=== PATIENT | male | born 1950 | race Caucasian/White ===

== ENCOUNTER 2016-12-12 11:39 | Emergency (ER) | payer BC ==
[2016-12-12] MEDS ORDERED: Tetan/Diph/Pertus SYR(Tdap)* 0.5 ML SYR(BOOSTRIX) use SYR IM ONE (12:55)
[2016-12-12 12:57] VITALS: BP 139/86
--- NOTE | 2016-12-12 13:00 | UC ---
Laceration HPI - HPI Summary HPI Summary: patient cut hand on a metal object white changing the oil in the car. happened about 2 hours ago. 2.5 cm laceration between the 3rd and 4th knuckle on the left hand - History Of Current Complaint Stated Complaint: LEFT HAND LACERATION Time Seen by Provider: 12/12/16 12:51 Hx Obtained From: Patient Laceration Location: Hand Mechanism Of Injury: Sharp Trauma Onset/Duration: Sudden Onset, Lasting Hours Severity: Mild Aggravating Factors: Nothing Hands: 1 - simple laceration - Allergies/Home Medications Allergies/Adverse Reactions: Allergies Allergy/AdvReac Type Severity Reaction Status Date / Time No Known Allergies Allergy Verified 12/12/16 12:57 PMH/Surg Hx/FS Hx/Imm Hx Previously Healthy: Yes Cardiovascular History Of: Reports: Hypertension - Surgical History Surgical History: None - Family History Known Family History: Positive: None Negative: Cardiac Disease, Hypertension - Social History Alcohol Use: Occasionally Substance Use Type: None Smoking Status (MU): Never Smoked Tobacco Review of Systems Constitutional: Negative Skin: Other - laceration Eyes: Negative ENT: Negative Respiratory: Negative Cardiovascular: Negative Gastrointestinal: Negative Genitourinary: Negative Motor: Negative Neurovascular: Negative Musculoskeletal: Negative Neurological: Negative Psychological: Negative All Other Systems Reviewed And Are Negative: Yes Physical Exam Triage Information Reviewed: Yes Appearance: Well-Appearing, Well-Nourished, Pain Distress Vital Signs Reviewed: Yes Eye Exam: Normal ENT Exam: Normal ENT: Positive: Hearing grossly normal, Pharynx normal, TMs normal Dental Exam: Normal Neck exam: Normal Neck: Positive: Supple, Nontender, No Lymphadenopathy Respiratory Exam: Normal Respiratory: Positive: Chest non-tender, Lungs clear, Normal breath sounds Cardiovascular Exam: Normal Cardiovascular: Positive: RRR, No Murmur, Pulses Normal Abdominal Exam: Normal Abdomen Description: Positive: Nontender, No Organomegaly, Soft Bowel Sounds: Positive: Present Musculoskeletal Exam: Normal Musculoskeletal: Positive: Other: - hand movment is intact, Neurological Exam: Normal Neurological: Positive: Alert, Muscle Tone Normal Psychological Exam: Normal Skin: Positive: Other - 2.5 cm laceration on left hand, edges approximate well, bleeding well controlled, Laceration Repair - Laceration Repair 1 Description: Linear : No Repair Necessary Laceration Size After Repair: Length (cm) - 2.5 cm Modified For Repair: No Type Injection: Local Anesthesia Used: 1.0% Lido Cleansing Completed Via Routine Prep: Yes Irrigation With Pressure Irrigation Device: Yes Closure Material: Sutures - 4 Closure Method: Single Layer Suture Of: Skin Laceration Course/Dx - Course/Dx Course Of Treatment: hx obtained, exam performed, meds reviewed, tetanus given, lac repaired, dressing applied. educated on care - Differential Dx - Laceration/Wound Differental Diagnoses: Cellulitis, Joint Infection, Laceration, Puncture Wound, Tendon Laceration Provider Diagnoses: laceration simple 2.5 cm in left hand. tetanus vacination Discharge - Discharge Plan Condition: Stable Disposition: HOME Patient Education Materials: Laceration (ED) Additional Instructions: Keep area clean and dry, keep the splint on for the next 48 hours. stitches will be ready to come out in 7-10 days, Take the keflex for infection prevention. You received a tetanus booster today.
[2016-12-12] MEDS ORDERED: Lidocaine 1%* 5 ML VIAL ONE (13:10)
== END 2016-12-12 14:08 | disposition home or self-care (01) ==
LOC: UCCORT 11:39
DX: S61.412A Laceration without foreign body of left hand, initial encounter (principal); W45.8XXA Other foreign body or object entering through skin, initial encounter; Y93.89 Activity, other specified; Y92.9 Unspecified place or not applicable; Z23 Encounter for immunization; I10 Essential (primary) hypertension
CPT/HCPCS: 90471; 90715; 99212; G0463

== ENCOUNTER 2018-02-27 10:00 | Emergency (ER) | payer MEDICARE, BC ==
[2018-02-27 11:39] VITALS: BP 119/74
--- NOTE | 2018-02-27 11:54 | UC ---
Ear Complaint HPI - HPI Summary HPI Summary: He denies pain but feels like there is wax in the right ear. he gets some vertigo at times. He denies cardiac symptoms like palpitations or chest pain. He gets his ears flushed regularly every 6mo. - History of Current Complaint Chief Complaint: UCEar Stated Complaint: RT EAR PLUGGED Time Seen by Provider: 02/27/18 11:32 Hx Obtained From: Patient Onset/Duration: Gradual Onset, Lasting Days Severity Initially: Mild Severity Currently: Mild Pain Intensity: 0 Aggravating Factors: Nothing Alleviating Factors: Nothing Associated Signs/Symptoms: Positive: Foreign Body Sensation. Negative: Discharge, Hearing Loss, Trauma to Ear, Swelling @, URI Symptoms - Allergies/Home Medications Allergies/Adverse Reactions: Allergies Allergy/AdvReac Type Severity Reaction Status Date / Time No Known Allergies Allergy Verified 02/27/18 11:35 Home Medications: Home Medications Chlorthalidone TAB* [Hygroton TAB*] 25 mg PO DAILY 02/27/18 [History Confirmed 02/27/18] Ezetimibe TAB* [Zetia TAB*] 10 mg PO DAILY 02/27/18 [History Confirmed 02/27/18] PMH/Surg Hx/FS Hx/Imm Hx Previously Healthy: No - cerumen impaction. - Surgical History Surgical History: Yes Surgery Procedure, Year, and Place: HERNIA. CHOLECYSTECTOMY - Family History Known Family History: Positive: None Negative: Cardiac Disease, Hypertension - Social History Alcohol Use: Occasionally Substance Use Type: None Smoking Status (MU): Never Smoked Tobacco - Immunization History Most Recent Tetanus Shot: unkown Review of Systems ENT: Other - ear fullness. All Other Systems Reviewed And Are Negative: Yes Physical Exam Triage Information Reviewed: Yes Appearance: Well-Appearing, No Pain Distress Vital Signs: Initial Vital Signs Temp 98.1 F 02/27/18 11:33 Pulse 51 02/27/18 11:33 Resp 14 02/27/18 11:33 BP 119/74 02/27/18 11:33 Pulse Ox 99 02/27/18 11:33 Vital Signs Reviewed: Yes Eyes: Positive: Conjunctiva Clear ENT: Positive: Normal ENT inspection, TMs normal, Other - right moderate amount of cerumen. No pain or swelling. Neck: Positive: Supple, Nontender, No Lymphadenopathy. Negative: Nuchal Rigidity Respiratory: Positive: Lungs clear, Normal breath sounds, No respiratory distress, No accessory muscle use. Negative: Respiratory distress, Decreased breath sounds, Accessory muscle use, Crackles, Rhonchi, Stridor, Wheezing Cardiovascular: Positive: No Murmur, Pulses Normal. Negative: Tachycardia Abdomen Description: Positive: No Organomegaly, Soft. Negative: Distended, Guarding Musculoskeletal: Positive: Strength Intact, ROM Intact, No Edema Neurological: Positive: Alert, Muscle Tone Normal. Negative: Fatigued Psychological: Positive: Age Appropriate Behavior Skin: Negative: rashes Ear Complaint Course/Dx - Differential Dx/Diagnosis Provider Diagnoses: vertigo. right cerum impaction. Discharge - Sign-Out/Discharge Documenting (check all that apply): Discharge/Admit/Transfer - Discharge Plan Condition: Good Disposition: HOME Patient Education Materials: Cerumen Impaction (ED) Referrals: Chelsey Bentley MD [Primary Care Provider] - - Billing Disposition and Condition Condition: GOOD Disposition: Home
== END 2018-02-27 12:22 | disposition home or self-care (01) ==
LOC: UCCORT 10:00
DX: R42 Dizziness and giddiness (principal); H61.21 Impacted cerumen, right ear
CPT/HCPCS: 99212; G0463

== ENCOUNTER 2018-03-28 14:53 | Emergency (ER) | payer MEDICARE, BC ==
--- OUTSIDE RECORDS SUMMARY | 2018-03-28 15:56 | XMS REPORT ---
:1950 External Reference #:[id number] Author Organization [facility] 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 Chelsey Bentley MD Primary Care Physician Unavailable Payers Type Date Identification Numbers Payment Provider Subscriber Medicare Primary Effective: Policy Number: Medicare Servando Klein 2017 [id number] PayID: [id number] [address] [place] [address] Medigap Part B Effective: 2006 Policy Number: Excell[employer] Servando Klein [id number] Group Number: [id number] [address] [address] Group Name: [place] [address] PayID: [id number] Problems Date Description Provider Status Onset: 05/18/2015 Essential hypertension Nidhi Hurley PA-C Active Note: low-renin Onset: 05/18/2015 Rotator cuff syndrome Nidhi Hurley PA-C Active Onset: 05/18/2015 Primary erectile dysfunction Nidhi Hurley PA-C Active Onset: 05/18/2015 Benign prostatic hypertrophy Nidhi Hurley PA-C Active without outflow obstruction Note: Dr. Randhawa Onset: 05/18/2015 Degenerative joint disease Nidhi Hurley PA-C Active involving multiple joints Note: Warnowicz; left knee meniscectomy. Onset: 05/18/2015 Kidney stone Nidhi Hurley PA-C Active Onset: 05/18/2015 Chronic nonalcoholic liver disease RISHI Ding Active Note: transferrin saturation, ABC, antibodies anti-endomysial, anti-tTG, SPEP and ceruloplasmin WNL Onset: 05/18/2015 Gastroesophageal reflux disease Nidhi Hurley PA-C Active Note: upper endoscopy to D3 with random duodenal biopsies 2010 Onset: 05/18/2015 Hyperlipidemia Nidhi Hurley PA-C Active Note: December 2016 Chol 221 trig 198 HDL 51 LDL 130; Jun 2016 LDL 134 HDL 55 chol 222 The LDL goal is <130. Onset: 05/18/2015 Obesity Nidhi Hurley PA-C Active Onset: 05/18/2015 Adult health examination Nidhi Hurley PA-C Active Note: TS -. PPD 2012-. Onset: 07/23/2015 Diverticular disease of colon Christopher Paulino M.D. Active Note: colo to TI 2014 Onset: 10/11/2015 Benign essential hypertension [facility] Onset: 10/11/2015 Pure hypercholesterolemia MARLYN aCrlin Active Onset: 04/19/2017 Olecranon bursitis Jose Beach M.D. Active Onset: 07/02/2017 Impacted cerumen Swapnil Meyer M.D. Active Onset: 07/02/2017 Eustachian tube disorder Swapnil Meyer M.D. Active Family History Date Family Member(s) Problem(s) Comments Father Prostate Cancer Father Alzheimer's Disease Onset: (age 74 Years) Mother Colon Cancer Mother due to Cancer () Social History Type Date Description Comments Marital Status Lives With Spouse Occupation Retired Work Status Retired ETOH Use Currently consumes alcohol socially Smoking Patient denies history of smoking Daily Caffeine Consumes on average 2 cups of regular coffee per day Allergies, Adverse Reactions, Alerts Date Description Reaction Status Severity Comments 05/18/2015 Atorvastatin active Moderate 05/18/2015 Crestor Myalgias active Moderate 05/18/2015 Lovastatin Unknown active Moderate 03/13/2012 NKDA inactive Medications Medication Date Status Form Strength Qnty SIG Indications Ordering Provider Hydrocortisone 03/05/ Active Ointment 1% 28.35 apply to Chelsey 2017 0gm affected Mc, areas on MD chest three times a day Valacyclovir HCL 03/05/ Active Tablets 1gm 21tab 1 tab by Chelsey 2017 s mouth Mc, three times a day for 7 days Ezetimibe 07/09/ Active Tablets 10mg 90tab Take One Chelsey 2016 s Tablet By Johann Bentley MD Every Day Niacin Flush 03/30/ Active Capsules 500mg 360ca 4 by mouth Tavon Sanches 2015 ps every Sridhar DO night at bedtime Aspir-81 / Active Tablets DR 81mg 1 by mouth Unknown 0000 every day Vitamin D / Active Capsules 1,000Iu 1 tab by Unknown (Ergocalciferol) 0000 mouth daily Cialis / Active Tablets 20mg 15tab one 30 Mason 0000 s minutes Nj, prior to M.D. sexual activity Fish Oil / Active Capsules 500mg 1 by mouth Unknown 0000 every day Magnesium / Active Capsules 300mg 1 by mouth Unknown 0000 every day Osteo Bi-Flex / Active Tablets 250-200mg 2 by mouth Unknown Regular Strength 0000 every day Methyl B-12 / Active Lozenges 1000mcg 1PO qd Unknown 0000 Chlorthalidone / Active Tablets 25mg 1 daily Nadir, 0000 MD Leonides Meloxicam 04/19/ Hx Tablets 15mg 30tab 1 by mouth Jose 2016 - s every day Pompo, 03/05/ M.D. 2018 Amoxicillin/Clav 04/02/ Hx Tablets 875-125mg 20tab 1 by mouth L03.113 Mason ulanate 2016 twice a Nj, Potassium 06/12/ day x 10 M.D. 2017 days Probiotic 04/02/ Hx Capsules 90cap 1-2 L03.113 Mason Acidophilus 2016 - capsules Nj, 07/09/ by mouth M.D. 2017 daily x 10 days Niaspan 07/11/ Hx Tablets ER 1000mg 180ta 2 PO QHS Tavon Gaitan bs Sridhar DO Meloxicam 11/07/ Hx Tablets 15mg 30tab 1 by mouth Jose 2015 s every day Pompo, c food M.D. Omeprazole 11/07/ Hx Capsules 40mg 30cap 1 by mouth Jose 2015 - DR s every day Pompo, 01/03/ 30 min M.D. 2016 prior to breakfast Ibuprofen 10/11/ Hx Tablets 800mg 90tab 1 by mouth Jose 2015 - s three Pompo, 10/25/ times a M.D. 2015 day after meals as needed Isradipine 07/27/ Hx Capsules 5mg 180ca 1 by mouth I10 Christopher 2014 ps twice a Vat, day M.D. Rectiv 07/27/ Hx Ointment 0.4% 1unit 1 inch K60.2 Christopher 2014 s intra-anal Vatra, ly every M.D. 12 h Golytely 06/24/ Hx Solution 227.1gm 1unit drink 09/04 R19.5 Christopher 2015 - Rec s the jug Vatra, 07/27/ the day M.D. 2014 before (1 glass every 10 minutes), repeat and drink the other half the morning of the procedure Meloxicam 03/13/ Hx Tablets 15mg 30tab take 1 [place], 2011 s tablet po MD Gerry q day prn. Acetaminophen / Hx Tablets 500mg 2 by mouth Unknown 0000 every 4-6 hours as needed pain Vitamin C / Hx Tablets 100mg 1 po qd Unknown 0000 prn Osteo Advance / Hx Tablets 3 tabs po Unknown 0000 qd Gemfibrozil / Hx Tablets 600mg take one Unknown 0000 - tablet by mouth 2015 twice a day Isradipine / Hx Capsules 2.5mg 1 by mouth I10 Unknown 0000 - bid 2014 Base A / Hx Powder 3350 1 scoop @ Unknown Polyethylene 0000 bedtime Glycol 1450 prn, constipati on, hold for unformed bm. Lansoprazole / Hx Capsules 30mg 90cap [address] botello every day Antoni Paulino HTN Complex // Hx 3PO qd Unknown 0000 Prolessterol / Hx 2PO qd Unknown 0000 Betaine HCL / Hx Capsules 648mg 3PO qd Unknown 0000 - 2016 Niacin / Hx Tablets 500mg 1 by mouth Unknown 0000 - every day 2015 Medications Administered in Office Medication Date Status Form Strength Qnty SIG Indications Ordering Provider Depomedrol 80 Administered Injection Alma S. mg 016 MARLYN Gautam PPD Administered Injection Unknown 013 Immunizations CPT Code Status Date Vaccine Lot # [id number] Given 03/05/2018 Pneumovax Injection [id number] 43395 Given 09/05/2017 Pneumococcal Conjugate Vaccine 13 Valent For [id number] Intramuscular Use 11905 Given 07/09/2017 Influenza Virus Vacc[place] Iiv[place] [id number] Given 12/12/2016 Td Preservative Free For Use In Individuals 7 Yrs Or Older [id number] Given 07/06/2016 Influenza Virus Vaccine Split Virus Use For [id number] Individual 3Yr Older [id number] Given 06/14/2015 Influenza Vaccine (Fluzone) Age 3 And Older [id number] Given 05/27/2013 Tetnus Injection Vital Signs Date Vital Result Comment 03/05/2018 BP Systolic Sitting Right Arm 120 mmHg BP Diastolic Sitting Right Arm 79 mmHg Body Temperature 97.8 F Heart Rate 67 /min Respiratory Rate 16 /min Height 68 inches 5'8" Weight 182.00 lb BMI (Body Mass Index) 27.7 kg/m2 BSA (Body Surface Area) 1.96 m2 Huron body weight in kilograms 70 O2 % BldC Oximetry 98 % 09/05/2017 BP Systolic Sitting Left Arm 132 mmHg BP Diastolic Sitting Left Arm 78 mmHg Heart Rate 63 /min Respiratory Rate 16 /min Height 68 inches 5'8" Weight 207.00 lb BMI (Body Mass Index) 31.5 kg/m2 BSA (Body Surface Area) 2.07 m2 Huron body weight in kilograms 70 07/09/2017 BP Systolic 120 mmHg BP Diastolic 74 mmHg Heart Rate 79 /min Respiratory Rate 12 /min Height 68 inches 5'8" Weight 203.12 lb BMI (Body Mass Index) 30.9 kg/m2 BSA (Body Surface Area) 2.06 m2 Huron body weight in kilograms 70 O2 % BldC Oximetry 98 % 07/02/2017 BP Systolic 128 mmHg BP Diastolic 84 mmHg Heart Rate 68 /min Height 68 inches 5'8" Weight 193.00 lb BMI (Body Mass Index) 29.3 kg/m2 BSA (Body Surface Area) 2.01 m2 Huron body weight in kilograms 70 04/09/2017 BP Systolic 132 mmHg BP Diastolic 82 mmHg Height 68 inches 5'8" Weight 191.00 lb BMI (Body Mass Index) 29.0 kg/m2 BSA (Body Surface Area) 2.00 m2 [place] body weight in kilograms 70 04/02/2017 BP Systolic Sitting Right Arm 112 mmHg BP Diastolic Sitting Right Arm 62 mmHg Body Temperature 98.4 F Heart Rate 76 /min Height 68 inches 5'8" Weight 192.00 lb BMI (Body Mass Index) 29.2 kg/m2 BSA (Body Surface Area) 2.01 m2 Huron body weight in kilograms 70 O2 % BldC Oximetry 95 % 03/23/2017 BP Systolic 134 mmHg BP Diastolic 76 mmHg Body Temperature 99.0 F Heart Rate 80 /min Respiratory Rate 16 /min Height 68 inches 5'8" Weight 190.00 lb BMI (Body Mass Index) 28.9 kg/m2 BSA (Body Surface Area) 2.00 m2 Huron body weight in kilograms 70 O2 % BldC Oximetry 97 % 01/03/2017 BP Systolic 136 mmHg BP Diastolic 83 mmHg Heart Rate 65 /min Height 68 inches 5'8" Weight 197.00 lb BMI (Body Mass Index) 30.0 kg/m2 BSA (Body Surface Area) 2.03 m2 12/21/2016 BP Systolic 130 mmHg BP Diastolic 74 mmHg Heart Rate 65 /min Height 68 inches 5'8" Weight 197.00 lb BMI (Body Mass Index) 30.0 kg/m2 BSA (Body Surface Area) 2.03 m2 07/06/2016 BP Systolic 128 mmHg BP Diastolic 81 mmHg Heart Rate 65 /min Height 68 inches 5'8" Weight 189.00 lb BMI (Body Mass Index) 28.7 kg/m2 BSA (Body Surface Area) 2.00 m2 03/30/2016 BP Systolic 119 mmHg BP Diastolic 73 mmHg Heart Rate 58 /min Height 68 inches 5'8" Weight 198.00 lb BMI (Body Mass Index) 30.1 kg/m2 BSA (Body Surface Area) 2.04 m2 10/25/2015 BP Systolic 126 mmHg BP Diastolic 75 mmHg Heart Rate 74 /min Height 68 inches 5'8" Weight 204.00 lb BMI (Body Mass Index) 31.0 kg/m2 BSA (Body Surface Area) 2.06 m2 10/11/2015 BP Systolic 136 mmHg BP Diastolic 79 mmHg Heart Rate 63 /min Height 68 inches 5'8" Weight 205.50 lb BMI (Body Mass Index) 31.2 kg/m2 BSA (Body Surface Area) 2.07 m2 09/27/2015 BP Systolic Sitting Left Arm 146 mmHg BP Diastolic Sitting Left Arm 84 mmHg Heart Rate 68 /min Respiratory Rate 16 /min Height 68 inches 5'8" Weight 212.00 lb BMI (Body Mass Index) 32.2 kg/m2 BSA (Body Surface Area) 2.09 m2 07/27/2015 BP Systolic 149 mmHg BP Diastolic 80 mmHg Heart Rate 60 /min Height 68 inches 5'8" Weight 200.00 lb BMI (Body Mass Index) 30.4 kg/m2 BSA (Body Surface Area) 2.04 m2 06/24/2015 BP Systolic 140 mmHg BP Diastolic 82 mmHg Heart Rate 64 /min Respiratory Rate 16 /min Height 68 inches 5'8" Weight 200.00 lb BMI (Body Mass Index) 30.4 kg/m2 BSA (Body Surface Area) 2.04 m2 06/14/2015 BP Systolic Sitting Left Arm 118 mmHg BP Diastolic Sitting Left Arm 66 mmHg Heart Rate 68 /min Respiratory Rate 20 /min Height 68 inches 5'8" Weight 200.00 lb BMI (Body Mass Index) 30.4 kg/m2 BSA (Body Surface Area) 2.04 m2 05/18/2015 BP Systolic 126 mmHg BP Diastolic 90 mmHg Heart Rate 62 /min Height 67 inches 5'7" Weight 201.00 lb BMI (Body Mass Index) 31.5 kg/m2 BSA (Body Surface Area) 2.03 m2 03/13/2012 Height 67 inches 5'7" Weight 209.00 lb 09/12/2011 Height 67 inches 5'7" Weight 213.00 lb 01/11/2011 Height 67 inches 5'7" Weight 213.00 lb Results Test Date Test Result H/L Range Note LDL Cholesterol Profile 02/28/2018 Cholesterol 180 mg/dL <200 1, 2 Triglycerides 129 mg/dL <150 1, 3 HDL Cholesterol 58 mg/dL >40 1, 4 LDL-Cholesterol 96 mg/dL < 100 1, 5 Laboratory test finding 02/28/2018 Uric Acid 6.1 mg/dL 3.5-7.2 1 Laboratory test finding 02/28/2018 Uric Acid <pending> CBS W/Automated Diff 02/28/2018 White Blood Count 5.6 K/uL 3.4-10.5 1 Red Blood Count 4.64 M/uL 4.20-5.80 1 Hemoglobin 15.3 gm/dL 12.8-17.0 1 Hematocrit 42.5 % 38.0-48.0 1 Mean Cell Volume 91.6 fl 80.0-96.0 1 Mean Corpuscular HGB 33.0 pg 27.0-33.0 1 Mean Corpuscular HGB Conc 36.0 g/dL 31.7-36.0 1 Platelet Count 298 K/uL 155-360 1 Red Cell Distri Width SD 42.4 fl 36-51 1 Red Cell Distri Width %CV 13.1 % 11.6-15.8 1 Mean Platelet Volume 10.9 fL High 6.6-10.6 1 Neut% 54.2 % 33.0-73.0 1 Lymph % 28.3 % 20.0-42.0 1 Griggs % 11.9 % High 0.0-10.0 1 Eo% 4.5 % 0.0-6.6 1 Bas% 1.1 % 0.0-1.1 1 Neut# 3.04 K/uL 1.8-7.0 1 Lymph # 1.59 K/uL 1.0-4.0 1 Griggs # 0.67 K/uL 0.0-0.8 1 Eos # 0.25 K/uL 0.0-0.5 1 Baso # 0.06 K/uL 0.0-0.1 1 Comprehensive Metabolic Panel 02/28/2018 Glucose 98 mg/dL 74-106 1 BUN 10 mg/dL 7-18 1 Creatinine 1.0 mg/dL 0.6-1.3 1 Glom Filtration Rate, Estimate >60 mL/min >60 1 If >60 mL/min >60 1, 6 BUN/Creat 10.0 ratio 1 Sodium 139 mmol/L 136-145 1 Potassium 3.8 mmol/L 3.5-5.1 1 Chloride 100 mmol/L 98-107 1 Carbon Dioxide 28 mmol/L 21-32 1 Anion Gap 11 mEq/L 8-16 1 Calcium 9.3 mg/dL 8.5-10.1 1 Total Protein 7.3 g/dL 6.4-8.2 1 Albumin 4.2 g/dL 3.4-5.0 1 Globulin 3.1 g/dL 1.9-4.3 1 Alb/Glob 1.4 ratio 1 Bilirubin,Total 0.6 mg/dL 0.2-1.0 1 Sgot/Ast 29 U/L 15-37 1 SGPT/Alt 49 U/L 12-78 1 Alkaline Phosphatase 44 U/L Low 45-117 1 Laboratory test finding 02/28/2018 Vitamin B12 1138 pg/mL High 193-986 1 Basic Metabolic Panel 11/26/2017 Sodium 135 mmol/L 133-145 Potassium 3.8 mmol/L 3.5-5.0 Chloride 94 mmol/L Low 101-111 Co2 Carbon Dioxide 31 mmol/L 22-32 Anion Gap 10 mmol/L 2-11 Glucose 85 mg/dL 70-100 Blood Urea Nitrogen 14 mg/dL 6-24 Creatinine 0.99 mg/dL 0.67-1.17 BUN/Creatinine Ratio 14.1 8-20 Calcium 10.3 mg/dL 8.6-10.3 Egfr Non- 75.9 >60 Egfr 97.6 >60 7 Laboratory test finding 11/26/2017 Uric Acid 7.7 mg/dL High 4.4-7.6 Pthi 11/26/2017 Calcium (PTH Intact) 10.2 mg/dL 8.6-10.3 PTH Intact 2.1 pmol/L 1.3-9.3 Basic Metabolic Panel 10/18/2017 Sodium 139 mmol/L 133-145 Potassium 3.8 mmol/L 3.5-5.0 Chloride 101 mmol/L 101-111 Co2 Carbon Dioxide 27 mmol/L 22-32 Anion Gap 11 mmol/L 2-11 Glucose 93 mg/dL 70-100 Blood Urea Nitrogen 12 mg/dL 6-24 Creatinine 1.01 mg/dL 0.67-1.17 BUN/Creatinine Ratio 11.9 8-20 Calcium 10.2 mg/dL 8.6-10.3 Egfr Non- 74.1 >60 Egfr 95.3 >60 8 Laboratory test finding 10/18/2017 Uric Acid 8.8 mg/dL High 4.4-7.6 PSA Screening 1.400 ng/mL 0-4.0 9 Serum or plasma 10/17/2017 Serum or plasma 9.1 8.5-10.1 calcium measurement calcium measurement (mass/volume) (mass/volume) Serum or plasma 10/17/2017 Serum or plasma 56 >40 cholesterol in HDL cholesterol in HDL measurement (ma measurement (mass/volume) Serum or plasma 10/17/2017 Serum or plasma 99 < 100 cholesterol in LDL cholesterol in LDL measurement by measurement by calculation (mass/volume) Serum or plasma 10/17/2017 Serum or plasma 190 <200 cholesterol cholesterol measurement measurement (mass/volu (mass/volume) Serum or plasma 10/17/2017 Serum or plasma 1.0 0.6-1.3 creatinine creatinine measurement measurement (mass/volum (mass/volume) Serum or plasma 10/17/2017 Serum or plasma 0.1 0.0-0.2 direct bilirubin direct bilirubin measurement (mass measurement (mass/volume) Serum or plasma 10/17/2017 Serum or plasma 94 74-106 glucose measurement glucose measurement (mass/volume) (mass/volume) Serum or plasma 10/17/2017 Serum or plasma 0.4 0.0-0.9 indirect bilirubin indirect bilirubin measurement (ma measurement (mass/volume) Serum or plasma 10/17/2017 Serum or plasma 7.6 6.4-8.2 protein measurement protein measurement (mass/volume) (mass/volume) Serum or plasma total 10/17/2017 Serum or plasma 0.5 0.2-1.0 bilirubin measurement total bilirubin (mass/ measurement (mass/volume) Serum or plasma 10/17/2017 Serum or plasma 174 High <150 triglyceride triglyceride measurement (mass/vol measurement (mass/volume) Serum or plasma urea 10/17/2017 Serum or plasma urea 14 7-18 nitrogen measurement nitrogen measurement (mass/vo (mass/volume) Serum sodium 10/17/2017 Serum sodium 142 136-145 measurement measurement Laboratory test 10/17/2017 Vitamin D,25-Hydroxy 57.3 ng/mL 30.0-100.0 10 , 11 finding Liver Function Tests 10/17/2017 Total Protein 7.6 g/dL 6.4-8.2 Albumin 4.1 g/dL 3.4-5.0 Globulin 3.5 g/dL 1.9-4.3 Alb/Glob 1.2 ratio Bilirubin,Total 0.5 mg/dL 0.2-1.0 Bilirubin,Direct 0.1 mg/dL 0.0-0.2 Bilirubin,Indirect 0.4 mg/dL 0.0-0.9 Sgot/Ast 41 U/L High 15-37 SGPT/Alt 79 U/L High 12-78 Alkaline Phosphatase 45 U/L 45-117 Comprehensive Metabolic Panel 10/17/2017 Glucose 94 mg/dL 74-106 BUN 14 mg/dL 7-18 Creatinine 1.0 mg/dL 0.6-1.3 Glom Filtration Rate, Estimate >60 mL/min >60 If >60 mL/min >60 12 BUN/Creat 14.0 ratio Sodium 142 mmol/L 136-145 Potassium 3.9 mmol/L 3.5-5.1 Chloride 102 mmol/L 98-107 Carbon Dioxide 31 mmol/L 21-32 Anion Gap 9 mEq/L 8-16 Calcium 9.1 mg/dL 8.5-10.1 LDL Cholesterol Profile 10/17/2017 Cholesterol 190 mg/dL <200 13 Triglycerides 174 mg/dL High <150 14 HDL Cholesterol 56 mg/dL >40 15 LDL-Cholesterol 99 mg/dL < 100 16 Alt SerPl-cCnc 10/17/2017 Alt SerPl-cCnc 79 High 12-78 Albumin/Glob SerPl 10/17/2017 Albumin/Glob SerPl 1.2 Anion Gap SerPl-sCnc 10/17/2017 Anion Gap SerPl-sCnc 9 8-16 Serum or plasma 10/17/2017 Serum or plasma 41 High 15-37 aspartate aspartate aminotransferase aminotransferase measure measurement (enzymatic activity/volume) Serum or plasma 10/17/2017 Serum or plasma 45 45-117 alkaline phosphatase alkaline phosphatase measurement ( measurement (enzymatic activity/volume) Serum or plasma albumin 10/17/2017 Serum or plasma albumin 4.1 3.4-5.0 measurement measurement (mass/volume) (mass/volume) Serum or plasma 10/17/2017 Serum or plasma 57.3 30.0-100.0 25-hydroxyvitamin D 25-hydroxyvitamin D measurement (m measurement (mass/volume) BUN/Creat SerPl 10/17/2017 BUN/Creat SerPl 14.0 Chloride SerPl-sCnc 10/17/2017 Chloride SerPl-sCnc 102 98-107 Globulin Ser Calc-mCnc 10/17/2017 Globulin Ser Calc-mCnc 3.5 1.9-4.3 Potassium SerPl-sCnc 10/17/2017 Potassium SerPl-sCnc 3.9 3.5-5.1 Serum carbon dioxide 10/17/2017 Serum carbon dioxide 31 21-32 measurement measurement Comprehensive Metabolic 08/20/2017 Glucose 105 mg/dL 74-106 17 Panel BUN 16 mg/dL 7-18 17 Creatinine 1.1 mg/dL 0.6-1.3 17 Glom Filtration Rate, Estimate >60 mL/min >60 17 If >60 mL/min >60 17, 18 BUN/Creat 14.5 ratio 17 Sodium 141 mmol/L 136-145 17 Potassium 3.9 mmol/L 3.5-5.1 17 Chloride 104 mmol/L 98-107 17 Carbon Dioxide 31 mmol/L 21-32 17 Anion Gap 6 mEq/L Low 8-16 17 Calcium 9.3 mg/dL 8.5-10.1 17 Total Protein 7.0 g/dL 6.4-8.2 17 Albumin 3.8 g/dL 3.4-5.0 17 Globulin 3.2 g/dL 1.9-4.3 17 Alb/Glob 1.2 ratio 17 Bilirubin,Total 0.5 mg/dL 0.2-1.0 17 Sgot/Ast 41 U/L High 15-37 17 SGPT/Alt 89 U/L High 17 Alkaline Phosphatase 41 U/L Low 45-117 17 LDL Cholesterol Profile 08/20/2017 Cholesterol 191 mg/dL <200 17, 19 Triglycerides 209 mg/dL High <150 17, 20 HDL Cholesterol 54 mg/dL >40 17, 21 LDL-Cholesterol 95 mg/dL < 100 17, 22 Comprehensive Metabolic Panel 07/02/2017 Glucose 99 mg/dL 74-106 23 BUN 11 mg/dL 7-18 23 Creatinine 1.0 mg/dL 0.6-1.3 23 Glom Filtration Rate, Estimate >60 mL/min >60 23 If >60 mL/min >60 23, 24 BUN/Creat 11.0 ratio 23 Sodium 140 mmol/L 136-145 23 Potassium 4.2 mmol/L 3.5-5.1 23 Chloride 103 mmol/L 98-107 23 Carbon Dioxide 29 mmol/L 21-32 23 Anion Gap 8 mEq/L 8-16 23 Calcium 9.6 mg/dL 8.5-10.1 23 Total Protein 7.2 g/dL 6.4-8.2 23 Albumin 3.9 g/dL 3.4-5.0 23 Globulin 3.3 g/dL 1.9-4.3 23 Alb/Glob 1.2 ratio 23 Bilirubin,Total 0.4 mg/dL 0.2-1.0 23 Sgot/Ast 39 U/L High 15-37 23 SGPT/Alt 67 U/L 12-78 23 Alkaline Phosphatase 43 U/L Low 45-117 23 LDL Cholesterol Profile 07/02/2017 Cholesterol 242 mg/dL High <200 23, 25 Triglycerides 207 mg/dL High <150 23, 26 HDL Cholesterol 58 mg/dL >40 23, 27 LDL-Cholesterol 143 mg/dL < 100 23, 28 Laboratory test finding 07/02/2017 Magnesium 2.2 mg/dL 1.8-2.4 23 Anaerobic Culture W/ GR 04/09/2017 Gram Stain NO ORGANISMS SEE <SEE 29 , 30 Stain NOTE> Gram Stain NO WHITE BLOOD C <SEE NOTE> , 31 Anaerobic Culture NO ANAEROBES ISO <SEE NOTE> 29, 32 Fluid Culture W/ Gram 04/09/2017 Gram Stain NO ORGANISMS SEE <SEE NOTE> 29, 33 Stain Gram Stain NO WHITE BLOOD C <SEE NOTE> 29, 34 Fluid Culture NO GROWTH: FINAL <SEE NOTE> 29, 35 LDL Cholesterol Profile 12/21/2016 Cholesterol 221 mg/dL High <200 36, 37 Triglycerides 198 mg/dL High <150 36, 38 HDL Cholesterol 51 mg/dL >40 36, 39 LDL-Cholesterol 130 mg/dL < 100 36, 40 Comprehensive Metabolic Panel 12/21/2016 Glucose 104 mg/dL 74-106 36 BUN 9 mg/dL 7-18 36 Creatinine 1.1 mg/dL 0.6-1.3 36 Glom Filtration Rate, Estimate >60 mL/min >60 36 If >60 mL/min >60 36, 41 BUN/Creat 8.1 ratio 36 Sodium 142 mmol/L 136-145 36 Potassium 4.4 mmol/L 3.5-5.1 36 Chloride 104 mmol/L 98-107 36 Carbon Dioxide 30 mmol/L 21-32 36 Anion Gap 8 mEq/L 8-16 36 Calcium 9.4 mg/dL 8.5-10.1 36 Total Protein 7.5 g/dL 6.4-8.2 36 Albumin 4.3 g/dL 3.4-5.0 36 Globulin 3.2 g/dL 1.9-4.3 36 Alb/Glob 1.3 ratio 36 Bilirubin,Total 0.7 mg/dL 0.2-1.0 36 Sgot/Ast 35 U/L 15-37 36 SGPT/Alt 58 U/L 12-78 36 Alkaline Phosphatase 45 U/L 45-117 36 Laboratory test finding 06/29/2016 Magnesium 2.3 mg/dL 1.8-2.4 42 Comprehensive Metabolic Panel 06/29/2016 Glucose 95 mg/dL 74-106 42 BUN 14 mg/dL 7-18 42 Creatinine 1.0 mg/dL 0.6-1.3 42 Glom Filtration Rate, Estimate >60 mL/min >60 42 If >60 mL/min >60 42, 43 BUN/Creat 14.0 ratio 42 Sodium 139 mmol/L 136-145 42 Potassium 3.7 mmol/L 3.5-5.1 42 Chloride 101 mmol/L 98-107 42 Carbon Dioxide 31 mmol/L 21-32 42 Anion Gap 7 mEq/L Low 8-16 42 Calcium 9.6 mg/dL 8.5-10.1 42 Total Protein 7.4 g/dL 6.4-8.2 42 Albumin 4.1 g/dL 3.4-5.0 42 Globulin 3.3 g/dL 1.9-4.3 42 Alb/Glob 1.2 ratio 42 Bilirubin,Total 0.8 mg/dL 0.2-1.0 42 Sgot/Ast 39 U/L High 15-37 42 SGPT/Alt 65 U/L 12-78 42 Alkaline Phosphatase 51 U/L 45-117 42 LDL Cholesterol Profile 06/29/2016 Cholesterol 222 mg/dL High <200 42, 44 Triglycerides 166 mg/dL High <150 42, 45 HDL Cholesterol 55 mg/dL >40 42, 46 LDL-Cholesterol 134 mg/dL < 100 42, 47 Comprehensive Metabolic Panel 09/22/2015 Glucose 145 mg/dL High 74-106 BUN 12 mg/dL 7-18 Creatinine 1.1 mg/dL 0.6-1.3 Glom Filtration Rate, Estimate >60 mL/min >60 If >60 mL/min >60 48 BUN/Creat 10.9 ratio Sodium 139 mmol/L 136-145 Potassium 4.1 mmol/L 3.5-5.1 Chloride 105 mmol/L 98-107 Carbon Dioxide 27 mmol/L 21-32 Anion Gap 7 mEq/L Low 8-16 Calcium 9.0 mg/dL 8.5-10.1 Total Protein 7.7 g/dL 6.4-8.2 Albumin 4.1 g/dL 3.4-5.0 Globulin 3.6 g/dL 1.9-4.3 Alb/Glob 1.1 ratio Bilirubin,Total 0.6 mg/dL 0.2-1.0 Sgot/Ast 46 U/L High 15-37 SGPT/Alt 100 U/L High 12-78 Alkaline Phosphatase 52 U/L 45-117 Laboratory test finding 07/14/2015 Polyp Colon And/Or See Note 49 Rectum Comprehensive Metabolic Panel 07/13/2015 Glucose 90 mg/dL 74-106 BUN 13 mg/dL 7-18 Creatinine 1.1 mg/dL 0.6-1.3 Glom Filtration Rate, Estimate >60 mL/min >60 If >60 mL/min >60 50 BUN/Creat 11.8 ratio Sodium 138 mmol/L 136-145 Potassium 3.7 mmol/L 3.5-5.1 Chloride 104 mmol/L 98-107 Carbon Dioxide 26 mmol/L 21-32 Anion Gap 8 mEq/L 8-16 Calcium 9.5 mg/dL 8.5-10.1 Total Protein 7.8 g/dL 6.4-8.2 Albumin 4.3 g/dL 3.4-5.0 Globulin 3.5 g/dL 1.9-4.3 Alb/Glob 1.2 ratio Bilirubin,Total 0.4 mg/dL 0.2-1.0 Sgot/Ast 54 U/L High 15-37 SGPT/Alt 95 U/L High 12-78 Alkaline Phosphatase 45 U/L 45-117 Comprehensive Metabolic Panel 06/17/2015 Glucose 112 mg/dL High 74-106 BUN 15 mg/dL 7-18 Creatinine 1.1 mg/dL 0.6-1.3 Glom Filtration Rate, Estimate >60 mL/min >60 If >60 mL/min >60 51 BUN/Creat 13.6 ratio Sodium 140 mmol/L 136-145 Potassium 4.4 mmol/L 3.5-5.1 Chloride 107 mmol/L 98-107 Carbon Dioxide 29 mmol/L 21-32 Anion Gap 4 mEq/L Low 8-16 Calcium 9.5 mg/dL 8.5-10.1 Total Protein 7.7 g/dL 6.4-8.2 Albumin 4.1 g/dL 3.4-5.0 Globulin 3.6 g/dL 1.9-4.3 Alb/Glob 1.1 ratio Bilirubin,Total 0.4 mg/dL 0.2-1.0 Sgot/Ast 40 U/L High 15-37 SGPT/Alt 100 U/L High 12-78 Alkaline Phosphatase 57 U/L 45-117 CBC/Manual Differential 06/17/2015 White Blood Count 4.9 K/uL 3.4-10.5 Red Blood Count 4.66 M/uL 4.20-5.80 Hemoglobin 15.0 gm/dL 12.8-17.0 Hematocrit 43.0 % 38.0-48.0 Mean Cell Volume 92.3 fl 80.0-96.0 Mean Corpuscular HGB 32.2 pg 27.0-33.0 Mean Corpuscular HGB Conc 34.9 g/dL 31.7-36.0 Platelet Count 282 K/uL 150-400 Red Cell Distri Width %CV 12.6 % 11.6-15.8 Mean Platelet Volume 10.4 fL 6.6-10.6 Total Cells Counted 100 #CELLS Neutrophils% 56 % 33-73 Lymph% 30 % 17-56 Platelet Estimate NORMAL Band% 1 % 0-8 Monocyte% 9 % 0-10 Eosinophil% 3 % 0-5 Basophil% 1 % 0-2 RBC Morphology NORMAL Comprehensive Metabolic Panel 05/12/2015 Glucose 99 mg/dL 74-106 BUN 11 mg/dL 7-18 Creatinine 1.0 mg/dL 0.6-1.3 Glom Filtration Rate, Estimate >60 mL/min >60 If >60 mL/min >60 52 BUN/Creat 11.0 ratio Sodium 137 mmol/L 136-145 Potassium 4.6 mmol/L 3.5-5.1 Chloride 108 mmol/L High 98-107 Carbon Dioxide 23 mmol/L 21-32 Anion Gap 6 mEq/L Low 8-16 Calcium 9.6 mg/dL 8.5-10.1 Total Protein 8.1 g/dL 6.4-8.2 Albumin 4.2 g/dL 3.4-5.0 Globulin 3.9 g/dL 1.9-4.3 Alb/Glob 1.1 ratio Bilirubin,Total 0.6 mg/dL 0.2-1.0 Sgot/Ast 61 U/L High 15-37 SGPT/Alt 93 U/L High 12-78 Alkaline Phosphatase 51 U/L 45-117 LDL Cholesterol Profile 05/12/2015 Cholesterol 191 mg/dL < 200 53 Triglycerides 126 mg/dL < 150 54 HDL Cholesterol 43 mg/dL > 40 55 LDL-Cholesterol 123 mg/dL < 100 56 1 E78.5 I10 E79.0 2 Reference Guidelines*: Desirable: ........... < 200 mg/dL Borderline High: ..... 200-239 mg/dL High: ................ >=240 mg/dL * The National Cholesterol Education Program (NCEP) 3 Reference Guidelines*: Normal: ............. < 150 mg/dL Borderline High: .... 150-199 mg/dL High: ............... 200-499 mg/dL Very High: .......... > 500 mg/dL * Source: National Cholesterol Education Program (NCEP) 4 Reference Guidelines*: Low HDL: ..... < 40 mg/dL Normal: ..... 40-60 mg/dL Desirable: ... > 60 mg/dL *The National Cholesterol Education Program(NCEP) 5 Reference Guidelines*: Optimal:........... <100 mg/dL Near Optimal....... 100-129 mg/dL Borderline High.... 130-159 mg/dL High............... 160-189 mg/dL Very High.......... >=190 mg/dL * Source: National Cholesterol Education Program (NCEP) 6 Note: Persistent reduction for 3 months or more in an eGFR <60 mL/min/1.73 m2 defines CKD. Patients with eGFR values >/=60 mL/min/1.73 m2 may also have CKD if evidence of persistent proteinuria is present. The original MDRD equation for estimated GFR is not valid for patients less than 18 years of age. Additional information may be found at www.kdoqi.org. 7 Because ethnic data is not always readily available, this report includes an eGFR for both -Americans and non- Americans. The National Kidney Disease Education Program (NKDEP) does not endorse the use of the MDRD equation for patients that are not between the ages of 18 and 70, are , have extremes of body size, muscle mass, or nutritional status, or are non- or non-. According to the National Kidney Foundation, irrespective of diagnosis, the stage of the disease is based on the level of kidney function: Stage Description GFR(mL/min/1.73 m(2)) 1 Kidney damage with normal or decreased GFR 90 2 Kidney damage with mild decrease in GFR 60-89 3 Moderate decrease in GFR 30-59 4 Severe decrease in GFR 15-29 5 Kidney failure <15 (or dialysis) 8 Because ethnic data is not always readily available, this report includes an eGFR for both -Americans and non- Americans. The National Kidney Disease Education Program (NKDEP) does not endorse the use of the MDRD equation for patients that are not between the ages of 18 and 70, are , have extremes of body size, muscle mass, or nutritional status, or are non- or non-. According to the National Kidney Foundation, irrespective of diagnosis, the stage of the disease is based on the level of kidney function: Stage Description GFR(mL/min/1.73 m(2)) 1 Kidney damage with normal or decreased GFR 90 2 Kidney damage with mild decrease in GFR 60-89 3 Moderate decrease in GFR 30-59 4 Severe decrease in GFR 15-29 5 Kidney failure <15 (or dialysis) 9 Serum levels of PSA measured using the [employer] EMOS[employer] DXI Hybritech immunoassay should not be interpreted as absolute evidence of the presence or absence of disease. The PSA value should be used in conjunction with other pertinent clinical diagnostic procedures. The values obtained with different assay methods or kits cannot be used interchangeably. 10 R94.5 E78.5 E55.9 11 Vitamin D deficiency has been defined by the Holiday of Medicine and an Endocrine Society practice guideline as a level of serum 25-OH vitamin D less than 20 ng/mL (1,2). The Endocrine Society went on to further define vitamin D insufficiency as a level between 21 and 29 ng/mL (2). 1. IOM (Holiday of Medicine). 2010. Dietary reference intakes for calcium and D. [place]: The National Academies Press. 2. Dorothy MF, [place], Mega FARFAN, et al. Evaluation, treatment, and prevention of vitamin D deficiency: an Endocrine Society clinical practice guideline. JCEM. 2010; 96(7):1911-30. Performed at: RN - [facility] [address] [id number] Maintenance Engineer: Nadja Gleason MD, Phone: [phone] 12 Note: Persistent reduction for 3 months or more in an eGFR <60 mL/min/1.73 m2 defines CKD. Patients with eGFR values >/=60 mL/min/1.73 m2 may also have CKD if evidence of persistent proteinuria is present. The original MDRD equation for estimated GFR is not valid for patients less than 18 years of age. Additional information may be found at www.[email or web address]. 13 Reference Guidelines*: Desirable: ........... < 200 mg/dL Borderline High: ..... 200-239 mg/dL High: ................ >=240 mg/dL * The National Cholesterol Education Program (NCEP) 14 Reference Guidelines*: Normal: ............. < 150 mg/dL Borderline High: .... 150-199 mg/dL High: ............... 200-499 mg/dL Very High: .......... > 500 mg/dL * Source: National Cholesterol Education Program (NCEP) 15 Reference Guidelines*: Low HDL: ..... < 40 mg/dL Normal: ..... 40-60 mg/dL Desirable: ... > 60 mg/dL *The National Cholesterol Education Program(NCEP) 16 Reference Guidelines*: Optimal:........... <100 mg/dL Near Optimal....... 100-129 mg/dL Borderline High.... 130-159 mg/dL High............... 160-189 mg/dL Very High.......... >=190 mg/dL * Source: National Cholesterol Education Program (NCEP) 17 I10,E78.5 18 Note: Persistent reduction for 3 months or more in an eGFR <60 mL/min/1.73 m2 defines CKD. Patients with eGFR values >/=60 mL/min/1.73 m2 may also have CKD if evidence of persistent proteinuria is present. The original MDRD equation for estimated GFR is not valid for patients less than 18 years of age. Additional information may be found at www.[email or web address]. 19 Reference Guidelines*: Desirable: ........... < 200 mg/dL Borderline High: ..... 200-239 mg/dL High: ................ >=240 mg/dL * The National Cholesterol Education Program (NCEP) 20 Reference Guidelines*: Normal: ............. < 150 mg/dL Borderline High: .... 150-199 mg/dL High: ............... 200-499 mg/dL Very High: .......... > 500 mg/dL * Source: National Cholesterol Education Program (NCEP) 21 Reference Guidelines*: Low HDL: ..... < 40 mg/dL Normal: ..... 40-60 mg/dL Desirable: ... > 60 mg/dL *The National Cholesterol Education Program(NCEP) 22 Reference Guidelines*: Optimal:........... <100 mg/dL Near Optimal....... 100-129 mg/dL Borderline High.... 130-159 mg/dL High............... 160-189 mg/dL Very High.......... >=190 mg/dL * Source: National Cholesterol Education Program (NCEP) 23 E78.5 E83.42 24 Note: Persistent reduction for 3 months or more in an eGFR <60 mL/min/1.73 m2 defines CKD. Patients with eGFR values >/=60 mL/min/1.73 m2 may also have CKD if evidence of persistent proteinuria is present. The original MDRD equation for estimated GFR is not valid for patients less than 18 years of age. Additional information may be found at www.[email or web address]. 25 Reference Guidelines*: Desirable: ........... < 200 mg/dL Borderline High: ..... 200-239 mg/dL High: ................ >=240 mg/dL * The National Cholesterol Education Program (NCEP) 26 Reference Guidelines*: Normal: ............. < 150 mg/dL Borderline High: .... 150-199 mg/dL High: ............... 200-499 mg/dL Very High: .......... > 500 mg/dL * Source: National Cholesterol Education Program (NCEP) 27 Reference Guidelines*: Low HDL: ..... < 40 mg/dL Normal: ..... 40-60 mg/dL Desirable: ... > 60 mg/dL *The National Cholesterol Education Program(NCEP) 28 Reference Guidelines*: Optimal:........... <100 mg/dL Near Optimal....... 100-129 mg/dL Borderline High.... 130-159 mg/dL High............... 160-189 mg/dL Very High.......... >=190 mg/dL * Source: National Cholesterol Education Program (NCEP) 29 M70.21 30 NO ORGANISMS SEEN 31 NO WHITE BLOOD CELLS 32 NO ANAEROBES ISOLATED 33 NO ORGANISMS SEEN 34 NO WHITE BLOOD CELLS 35 NO GROWTH: FINAL REPORT 36 K76.9 37 Reference Guidelines*: Desirable: ........... < 200 mg/dL Borderline High: ..... 200-239 mg/dL High: ................ >=240 mg/dL * The National Cholesterol Education Program (NCEP) 38 Reference Guidelines*: Normal: ............. < 150 mg/dL Borderline High: .... 150-199 mg/dL High: ............... 200-499 mg/dL Very High: .......... > 500 mg/dL * Source: National Cholesterol Education Program (NCEP) 39 Reference Guidelines*: Low HDL: ..... < 40 mg/dL Normal: ..... 40-60 mg/dL Desirable: ... > 60 mg/dL *The National Cholesterol Education Program(NCEP) 40 Reference Guidelines*: Optimal:........... <100 mg/dL Near Optimal....... 100-129 mg/dL Borderline High.... 130-159 mg/dL High............... 160-189 mg/dL Very High.......... >=190 mg/dL * Source: National Cholesterol Education Program (NCEP) 41 Note: Persistent reduction for 3 months or more in an eGFR <60 mL/min/1.73 m2 defines CKD. Patients with eGFR values >/=60 mL/min/1.73 m2 may also have CKD if evidence of persistent proteinuria is present. The original MDRD equation for estimated GFR is not valid for patients less than 18 years of age. Additional information may be found at www.[email or web address]. 42 E78.5 43 Note: Persistent reduction for 3 months or more in an eGFR <60 mL/min/1.73 m2 defines CKD. Patients with eGFR values >/=60 mL/min/1.73 m2 may also have CKD if evidence of persistent proteinuria is present. The original MDRD equation for estimated GFR is not valid for patients less than 18 years of age. Additional information may be found at www.[email or web address]. 44 Reference Guidelines*: Desirable: ........... < 200 mg/dL Borderline High: ..... 200-239 mg/dL High: ................ >=240 mg/dL * The National Cholesterol Education Program (NCEP) 45 Reference Guidelines*: Normal: ............. < 150 mg/dL Borderline High: .... 150-199 mg/dL High: ............... 200-499 mg/dL Very High: .......... > 500 mg/dL * Source: National Cholesterol Education Program (NCEP) 46 Reference Guidelines*: Low HDL: ..... < 40 mg/dL Normal: ..... 40-60 mg/dL Desirable: ... > 60 mg/dL *The National Cholesterol Education Program(NCEP) 47 Reference Guidelines*: Optimal:........... <100 mg/dL Near Optimal....... 100-129 mg/dL Borderline High.... 130-159 mg/dL High............... 160-189 mg/dL Very High.......... >=190 mg/dL * Source: National Cholesterol Education Program (NCEP) 48 Note: Persistent reduction for 3 months or more in an eGFR <60 mL/min/1.73 m2 defines CKD. Patients with eGFR values >/=60 mL/min/1.73 m2 may also have CKD if evidence of persistent proteinuria is present. The original MDRD equation for estimated GFR is not valid for patients less than 18 years of age. Additional information may be found at www.[email or web address]. 49 OPERATION/PROCEDURE Colonoscopy DIAGNOSIS: PART 1: "COLON, TRANSVERSE, BIOPSY": - HYPERPLASTIC POLYP. PART 2: "COLON, SIGMOID, BIOPSY": - HYPERPLASTIC POLYP. PART 3: "COLON, SIGMOID, BIOPSY": - HYPERPLASTIC POLYP WITH LYMPHOID AGGREGATES. /niki 1039 GROSS Received in formalin in three properly labeled containers with the patient's name and accession number. Part 1; The specimen is designated "TRANSVERSE POLYP" and consists of several pieces of soft connor rubbery tissue in aggregate measuring 0.6 x 0.4 x 0.2 cm. The entire specimen is submitted in cassette one. Part 2; The specimen is designated "SIGMOID POLYP" and consists of a single piece of soft connor tissue measuring 0.2 x 0.2 x 0.2 cm. The entire specimen is submitted in cassette two. Part 3; The specimen is designated "SIGMOID POLYP" and consists of a single piece of connor brown tissue measuring 0.5 x 0.2 x 0.2 cm. The entire specimen is submitted in cassette three. /niki PRE OPERATIVE DIAGNOSIS Hematochezia REVIEW CODE CODE: I Signed Electronically signed RAYRAY PERKINS MD [id number] 50 Note: Persistent reduction for 3 months or more in an eGFR <60 mL/min/1.73 m2 defines CKD. Patients with eGFR values >/=60 mL/min/1.73 m2 may also have CKD if evidence of persistent proteinuria is present. The original MDRD equation for estimated GFR is not valid for patients less than 18 years of age. Additional information may be found at www.[email or web address]. 51 Note: Persistent reduction for 3 months or more in an eGFR <60 mL/min/1.73 m2 defines CKD. Patients with eGFR values >/=60 mL/min/1.73 m2 may also have CKD if evidence of persistent proteinuria is present. The original MDRD equation for estimated GFR is not valid for patients less than 18 years of age. Additional information may be found at www.[email or web address]. 52 Note: Persistent reduction for 3 months or more in an eGFR <60 mL/min/1.73 m2 defines CKD. Patients with eGFR values >/=60 mL/min/1.73 m2 may also have CKD if evidence of persistent proteinuria is present. The original MDRD equation for estimated GFR is not valid for patients less than 18 years of age. Additional information may be found at www.[email or web address]. 53 Reference Guidelines*: Desirable: ........... < 200 mg/dL Borderline High: ..... 200-239 mg/dL High: ................ >=240 mg/dL * The National Cholesterol Education Program (NCEP) 54 Reference Guidelines*: Normal: ............. < 150 mg/dL Borderline High: .... 150-199 mg/dL High: ............... 200-499 mg/dL Very High: .......... > 500 mg/dL * Source: National Cholesterol Education Program (NCEP) 55 Reference Guidelines*: Low HDL: ..... < 40 mg/dL Normal: ..... 40-60 mg/dL Desirable: ... > 60 mg/dL *The National Cholesterol Education Program(NCEP) 56 Reference Guidelines*: Optimal:........... <100 mg/dL Near Optimal....... 100-129 mg/dL Borderline High.... 130-159 mg/dL High............... 160-189 mg/dL Very High.......... >=190 mg/dL * Source: National Cholesterol Education Program (NCEP) Procedures Date CPT Code Description Status Comment 04/09/201793605 Aspiration/Injection joint Completed intermediate(wrist/ankle/elbow /olbursa 07/06/2016 56626 Remove Impact Cerumen Irrigati Completed 12/09/201524816 Asp./Injection major joint Completed 10/11/2015 44375 Radiology, Knee 3 Views Completed 10/11/2015 77036 Radiology, Knee 3 Views Completed 09/27/2015 02057 Remove Impacted Cerumen Completed 07/27/2015 49612 Remove Impacted Cerumen Completed 07/14/2015 68949 Colonoscopy With Polypectomy Completed 05/18/2015 45215 Remove Impacted Cerumen Completed 09/03/2014 Colonoscopy Completed 2024Document: 07/14/15 - Operative Report 06/11/2013 94566 Anesthesia, Upper Abdomen Completed Surgery Not Otherwise Spec 06/05/2013 64393 EKG Interpretation And Report Completed Only 01/11/201192114 Asp./Injection major joint Completed 07/03/2007 19555 Arthroscopy w/meniscectomy Completed including meniscal shaving 06/25/2007 92605 EKG-Tracing And Report Completed 04/27/1994 14348 Remove Impacted Cerumen Completed Encounters Type Date Location Provider CPT E/M Dx Office Visit 09/05/2017 11:40a [place] [address] E78.5 I10 R94.5 Z23 M70.21 Office Visit 08/09/2017 8:30a Orthopaedic Office Jose [place] M.D. 49136 M70.21 Office Visit 07/09/2017 1:20p [place] [address] Z23 I10 E78.5 E66.09 Z23 N20.0 Office Visit 07/02/2017 9:00a Primary Care Office Swapnil Meyer M.D. 89453 H61.21 H69.93 Office Visit 06/12/2017 10:00a Orthopaedic Office [place] M.D. 37727 M70.21 Office Visit 05/15/2017 9:15a Orthopaedic Office [place] M.D. 45350 M70.21 Office Visit 04/19/2017 8:45a Orthopaedic Office Jose Beach M.D. 32584 M70.21 Office Visit 04/09/2017 1:15p Orthopaedic Office [place] M.D. 61402 M70.21 Office Visit 04/02/2017 3:00p Primary Care Office Nidhi Hurley 81138 S40.811D PA-C V23.0xxD L03.113 I10 Office Visit 03/23/2017 1:20p [place] [address] S40.819A V29.00xA S37.039A Office Visit 01/03/2017 9:30a Primary Care Office Nidhi Hurley 07217 S61.412D PA-C K76.0 I10 E78.5 E83.42 Office Visit 12/21/2016 9:00a Primary Care Office Nidhi Hurley 44806 S61.412A PA-C I10 H61.23 K76.0 Z48.02 Office Visit 07/06/2016 9:30a Primary Care Office Nidhi Hurley PA-C 01917 I10 K57.30 K76.9 E78.5 M79.673 K60.1 Z23 H61.23 Office Visit 03/30/2016 2:00p Primary Care Office Nidhi Hurley PA-C 96062 I10 K57.30 K76.9 E78.5 M79.673 K60.1 Z23 Office Visit 01/07/2016 8:15a Orthopaedic Office Alma Gautam, 73695 M17.11 RPA M25.561 Office Visit 11/08/2015 8:15a Orthopaedic Office Alma Gautam, 91398 M25.561 [facility] M17.11 Office Visit 10/25/2015 9:30a HIMANSHU Hurley PA-C 99950 I10 K57.30 K76.9 E78.5 M79.673 Office Visit 10/11/2015 11:00a Orthopaedic Office Alma Gautam, 32026 M25.561 [facility] M17.11 Office Visit 09/27/2015 1:30p HIMANSHU Hurley PA-C 04233 I10 K57.30 K57.90 K60.2 K76.9 E78.5 H61.21 Office Visit 07/27/2015 1:30p HIMANSHU Paulino M.D. 24278 H61.20 I10 K76.9 E66.9 K57.30 K60.2 Office Visit 06/24/2015 1:00p HIMANSHU Hurley PA-C 12750 E78.5 I10 K76.0 R19.5 Office Visit 06/14/2015 11:30a HIMANSHU Hurley PA-C 16462 R19.5 Z23 K21.9 I10 Office Visit 05/18/2015 9:30a HIMANSHU Hurley PA-C 41519 I10 E78.5 M94.0 H61.23 K21.9 Office Visit 10/07/2008 1:45p HIMANSHU Paulino M.D. 53859 789.01 715.00 530.81 401.1 Office Visit 09/29/2008 1:45p HIMANSHU Paulino M.D. 27802 786.59 272.2 302.72 530.81 Office Visit 04/10/2008 2:30p HIMANSHU Paulino M.D. 01551 807.00 564.00 Office Visit 02/14/2008 2:30p HIMANSHU Paulino M.D. 46211 789.00 272.2 302.72 Office Visit 10/03/2007 9:30a [place] [address] 836.0 717.7 V67.09 Office Visit 06/21/2007 1:15p HIMANSHU Paulino M.D. 85192 719.46 272.2 Office Visit 06/03/2007 9:15a [place] [address] 836.0 Office Visit 04/30/2007 11:15a HIMANSHU Paulino M.D. 48985 719.46 Plan of Care Future Appointment(s):08/29/2018 8:15 am - [employer] at [facility] Care Fehqjm5009/05 3:40 pm - Chelsey Bentley MD at Primary Care Hesqxq6303/05/2018 - Chelsey Bentley MDI10 Essential (primary) hypertensionNew Labs:CBS W/Automated DiffComments:-Well controlled-Chlorthalidone dailyReferral:Dieter Barrios JR, M.D., Cardiovsclr UoobofyH63.5 Hyperlipidemia, unspecifiedNew Labs: Comprehensive Metabolic PanelLDL Cholesterol ProfileCBS W/Automated DiffComments :-Well controlled on Zetia, but increase in LFTs intially and now normalized - Niacin, Fish oil-Advised diet control, increase exercise and continue to lose weight-Trilgycerides also improved-Continue tomonitor every 6 monthsReferral: Dieter Barrios JR, M.D., Cardiovsclr EfzzwfnT51.511 Pain in right shoulderComments:-possibly bursitis, good ROM-Aleve PRN, Ice area-Referral to OrthoReferral:Pankaj Torrez MD, Sports Med/IduvdcxzfmtuqM61.551 Pain in right hipComments:-likely mild arthritis vs bursitis-Aleve PRN -Ice area- patient would like referral to OrthoReferral:Pankaj Torrez MD, Sports Med/ [id number] Encounter for immunizationComments:-pneumovax given -counseled on [id number] Rash and other nonspecific skin eruptionComments:possible shingles hydrocortisone three times a day as needed for itchingvalacyclovir 1gm 1 tab threetimes a day x 7 daysR07.89 Other chest painComments:-atypical chest pain-No pain with exertion intermittent-no pain today-occasional palpitations- EKG poor quality in office, cannot be read will send to Cardiology for EKGReferral:Dieter Barrios JR, M.D., Cardiovsclr DiseaseAllNew Medication: Hydrocortisone 1 %Valacyclovir HCL 1 gmFollow up:f/u in 6 months fasting blood work prior pls get last urology note
--- OUTSIDE RECORDS SUMMARY | 2018-03-28 15:57 | XMS REPORT ---
:1950 External Reference #:[id number] Author Organization [facility] 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 Chelsey Bentley MD Primary Care Physician Unavailable Payers Type Date Identification Numbers Payment Provider Subscriber Medicare Primary Effective: Policy Number: Medicare Servando Klein 2017 [id number] PayID: [id number] [address] [place] [address] Medigap Part B Effective: 2006 Policy Number: Excell[employer] Servando Klein [id number] Group Number: [id number] [address] [address] Group Name: [place] [address] PayID: [id number] Problems Date Description Provider Status Onset: 05/18/2015 [...] 10/11/2015 Benign essential hypertension [facility] Onset: 10/11/2015 Pure hypercholesterolemia MARLYN Carlin Active Onset: 04/19/2017 Olecranon bursitis Jose Beach [...] 03/13/ Hx Tablets 15mg 30tab take 1 [place], 2011 s tablet po MD Gerry q [...] CPT Code Status Date Vaccine Lot # [id number] Given 03/05/2018 Pneumovax Injection [id number] 70517 Given 09/05/2017 Pneumococcal Conjugate Vaccine 13 Valent For [id number] Intramuscular Use 43275 Given 07/09/2017 Influenza Virus Vaccine [place]riv[place] Iiv[place] [id number] Given 12/12/2016 Td Preservative Free For Use In Individuals 7 Yrs Or Older 48647 Given 07/06/2016 Influenza Virus Vaccine Split Virus Use For [id number] Individual 3Yr Older [id number] Given 06/14/2015 Influenza Vaccine (Fluzone) Age 3 And Older [id number] 88243 Given 05/27/2013 Tetnus Injection Vital Signs Date Vital Result Comment 03/05/2018 BP Systolic Sitting Right Arm 120 mmHg BP Diastolic Sitting Right Arm 79 mmHg Body Temperature 97.8 F Heart Rate 67 /min Respiratory Rate 16 /min Height 68 inches 5'8" Weight 182.00 lb BMI (Body Mass Index) 27.7 kg/m2 BSA (Body Surface Area) 1.96 m2 [place] body weight in kilograms 70 O2 % BldC Oximetry 98 % 09/05/2017 BP Systolic Sitting Left Arm 132 mmHg BP Diastolic Sitting Left Arm 78 mmHg Heart Rate 63 /min Respiratory Rate 16 /min Height 68 inches 5'8" Weight 207.00 lb BMI (Body Mass Index) 31.5 kg/m2 BSA (Body Surface Area) 2.07 m2 [place] body weight in kilograms 70 07/09/2017 BP Systolic 120 mmHg BP Diastolic 74 mmHg Heart Rate 79 /min Respiratory Rate 12 /min Height 68 inches 5'8" Weight 203.12 lb BMI (Body Mass Index) 30.9 kg/m2 BSA (Body Surface Area) 2.06 m2 [place] body weight in kilograms 70 O2 % BldC Oximetry 98 % 07/02/2017 BP Systolic 128 mmHg BP Diastolic 84 mmHg Heart Rate 68 /min Height 68 inches 5'8" Weight 193.00 lb BMI (Body Mass Index) 29.3 kg/m2 BSA (Body Surface Area) 2.01 m2 [place] body weight in kilograms 70 04/09/2017 BP Systolic 132 mmHg BP Diastolic 82 mmHg Height 68 inches 5'8" Weight 191.00 lb BMI (Body Mass Index) 29.0 kg/m2 BSA (Body Surface Area) 2.00 m2 [place] body weight in kilograms 70 04/02/2017 BP Systolic Sitting Right Arm 112 mmHg BP Diastolic Sitting Right Arm 62 mmHg Body Temperature 98.4 F Heart Rate 76 /min Height 68 inches 5'8" Weight 192.00 lb BMI (Body Mass Index) 29.2 kg/m2 BSA (Body Surface Area) 2.01 m2 [place] body weight in kilograms 70 O2 % BldC Oximetry 95 % 03/23/2017 BP Systolic 134 mmHg BP Diastolic 76 mmHg Body Temperature 99.0 F Heart Rate 80 /min Respiratory Rate 16 /min Height 68 inches 5'8" Weight 190.00 lb BMI (Body Mass Index) 28.9 kg/m2 BSA (Body Surface Area) 2.00 m2 [place] body weight in kilograms 70 O2 % [...] Test Date Test Result H/L Range Note Laboratory test finding 02/28/2018 Uric Acid <pending> [...] 1 Lymph % 28.3 % 20.0-42.0 1 Bond % 11.9 % High 0.0-10.0 1 Eo% 4.5 % 0.0-6.6 1 Bas% 1.1 % 0.0-1.1 1 Neut# 3.04 K/uL 1.8-7.0 1 Lymph # 1.59 K/uL 1.0-4.0 1 Bond # 0.67 K/uL 0.0-0.8 1 Eos # 0.25 K/uL 0.0-0.5 1 Baso # 0.06 K/uL 0.0-0.1 1 Laboratory test finding 02/28/2018 Vitamin B12 1138 pg/mL High 193-986 1 Comprehensive Metabolic Panel 02/28/2018 Glucose 98 mg/dL 74-106 1 BUN 10 mg/dL 7-18 1 Creatinine 1.0 mg/dL 0.6-1.3 1 Glom Filtration Rate, Estimate >60 mL/min >60 1 If >60 mL/min >60 1, 2 BUN/Creat 10.0 ratio 1 Sodium 139 mmol/L [...] Low 45-117 1 Laboratory test finding 02/28/2018 Uric Acid 6.1 mg/dL 3.5-7.2 1 LDL Cholesterol Profile 02/28/2018 Cholesterol 180 mg/dL <200 1, 3 Triglycerides 129 mg/dL <150 1, 4 HDL Cholesterol 58 mg/dL >40 1, 5 LDL-Cholesterol 96 mg/dL < 100 1, 6 Basic Metabolic Panel 11/26/2017 Sodium 135 mmol/L [...] mg/dL 8.6-10.3 PTH Intact 2.1 pmol/L 1.3-9.3 Laboratory test finding 10/18/2017 Uric Acid 8.8 mg/dL High 4.4-7.6 PSA Screening 1.400 ng/mL 0-4.0 8 Basic Metabolic Panel 10/18/2017 Sodium 139 mmol/L 133-145 Potassium 3.8 mmol/L 3.5-5.0 Chloride 101 mmol/L 101-111 Co2 Carbon Dioxide 27 mmol/L 22-32 Anion Gap 11 mmol/L 2-11 Glucose 93 mg/dL 70-100 Blood Urea Nitrogen 12 mg/dL 6-24 Creatinine 1.01 mg/dL 0.67-1.17 BUN/Creatinine Ratio 11.9 8-20 Calcium 10.2 mg/dL 8.6-10.3 Egfr Non- 74.1 >60 Egfr 95.3 >60 9 Serum or plasma 10/17/2017 Serum or plasma 45 45-117 alkaline phosphatase alkaline phosphatase measurement ( measurement (enzymatic activity/volume) Serum or plasma 10/17/2017 [...] or plasma 190 <200 cholesterol cholesterol measurement (mass/volu measurement (mass/volume) Serum or plasma 10/17/2017 Serum or plasma 1.0 0.6-1.3 creatinine measurement creatinine (mass/volum measurement (mass/volume) Serum or plasma direct 10/17/2017 Serum or plasma 0.1 0.0-0.2 bilirubin measurement direct bilirubin (mass measurement (mass/volume) Serum or plasma 10/17/2017 Serum or plasma 94 74-106 glucose measurement glucose measurement (mass/volume) (mass/volume) Serum or plasma 10/17/2017 Serum or plasma 0.4 0.0-0.9 indirect bilirubin indirect bilirubin measurement (ma measurement (mass/volume) Serum or plasma 10/17/2017 Serum or plasma 7.6 6.4-8.2 protein measurement protein measurement (mass/volume) (mass/volume) Serum or plasma total 10/17/2017 Serum or plasma total 0.5 0.2-1.0 bilirubin measurement bilirubin measurement (mass/ (mass/volume) Serum or plasma 10/17/2017 Serum or plasma 174 High <150 triglyceride triglyceride measurement (mass/vol measurement (mass/volume) Serum or plasma urea 10/17/2017 Serum or plasma urea 14 7-18 nitrogen measurement nitrogen measurement (mass/vo (mass/volume) Serum sodium 10/17/2017 Serum sodium 142 136-145 measurement measurement Laboratory test 10/17/2017 Vitamin D,25-Hydroxy 57.3 30.0-100.0 10, 11 finding ng/mL Liver Function Tests 10/17/2017 Total Protein 7.6 [...] SerPl-sCnc 10/17/2017 Anion Gap SerPl-sCnc 9 8-16 BUN/Creat SerPl 10/17/2017 BUN/Creat SerPl 14.0 Chloride SerPl-sCnc 10/17/2017 Chloride SerPl-sCnc 102 98-107 Globulin Ser Calc-mCnc 10/17/2017 Globulin Ser 3.5 1.9-4.3 Calc-mCnc Potassium SerPl-sCnc 10/17/2017 Potassium SerPl-sCnc 3.9 3.5-5.1 Serum carbon dioxide 10/17/2017 Serum carbon dioxide 31 21-32 measurement measurement Serum or plasma 10/17/2017 Serum or plasma 57.3 30.0-100.0 25-hydroxyvitamin D 25-hydroxyvitamin D measurement (m measurement (mass/volume) Serum or plasma albumin 10/17/2017 Serum or plasma 4.1 3.4-5.0 measurement albumin measurement (mass/volume) (mass/volume) Comprehensive Metabolic 08/20/2017 Glucose 105 mg/dL 74-106 [...] Anaerobic Culture NO ANAEROBES ISO <SEE NOTE> , 32 Fluid Culture W/ Gram 04/09/2017 Gram Stain NO ORGANISMS SEE <SEE NOTE> 29, 33 Stain Gram Stain NO WHITE BLOOD C <SEE NOTE> 29, 34 Fluid Culture NO GROWTH: FINAL <SEE NOTE> , 35 Comprehensive Metabolic Panel 12/21/2016 Glucose 104 mg/dL 74-106 36 BUN 9 mg/dL 7-18 36 Creatinine 1.1 mg/dL 0.6-1.3 36 Glom Filtration Rate, Estimate >60 mL/min >60 36 If >60 mL/min >60 36, 37 BUN/Creat 8.1 ratio 36 Sodium 142 mmol/L [...] 36 Alkaline Phosphatase 45 U/L 45-117 36 LDL Cholesterol Profile 12/21/2016 Cholesterol 221 mg/dL High <200 36, 38 Triglycerides 198 mg/dL High <150 36, 39 HDL Cholesterol 51 mg/dL >40 36, 40 LDL-Cholesterol 130 mg/dL < 100 36, 41 Laboratory test finding 06/29/2016 Magnesium 2.3 mg/dL [...] 100 56 1 E78.5 I10 E79.0 2 Note: Persistent reduction for 3 months or more in an eGFR <60 mL/min/1.73 m2 defines CKD. Patients with eGFR values >/=60 mL/min/1.73 m2 may also have CKD if evidence of persistent proteinuria is present. The original MDRD equation for estimated GFR is not valid for patients less than 18 years of age. Additional information may be found at www.kdoqi.org. 3 Reference Guidelines*: Desirable: ........... < 200 mg/dL Borderline High: ..... 200-239 mg/dL High: ................ >=240 mg/dL * The National Cholesterol Education Program (NCEP) 4 Reference Guidelines*: Normal: ............. < 150 mg/dL Borderline High: .... 150-199 mg/dL High: ............... 200-499 mg/dL Very High: .......... > 500 mg/dL * Source: National Cholesterol Education Program (NCEP) 5 Reference Guidelines*: Low HDL: ..... < 40 mg/dL Normal: ..... 40-60 mg/dL Desirable: ... > 60 mg/dL *The National Cholesterol Education Program(NCEP) 6 Reference Guidelines*: Optimal:........... <100 mg/dL Near Optimal....... 100-129 mg/dL Borderline High.... 130-159 mg/dL High............... 160-189 mg/dL Very High.......... >=190 mg/dL * Source: National Cholesterol Education Program (NCEP) 7 Because ethnic data is not always [...] 5 Kidney failure <15 (or dialysis) 8 Serum levels of PSA measured using the Kiio DXI Hybritech immunoassay should not be interpreted as absolute evidence of the presence or absence of disease. The PSA value should be used in conjunction with other pertinent clinical diagnostic procedures. The values obtained with different assay methods or kits cannot be used interchangeably. 9 Because ethnic data is not always readily [...] 15-29 5 Kidney failure <15 (or dialysis) 10 R94.5 E78.5 E55.9 11 Vitamin D deficiency has been defined by the Cut Off of Medicine and an Endocrine Society practice guideline as a level of serum 25-OH vitamin D less than 20 ng/mL (1,2). The Endocrine Society went on to further define vitamin D insufficiency as a level between 21 and 29 ng/mL (2). 1. IOM (Cut Off of Medicine). 2010. Dietary reference intakes for calcium and D. [place]: The National Academies Press. 2. Dorothy MF, [place], Mega FARFAN, et al. Evaluation, treatment, and prevention of vitamin D deficiency: an Endocrine Society clinical practice guideline. JCEM. 2010; 96(7):1911-30. Performed at: RN - [facility] [address] [id number] Bleach Boiler Puller: Nadja Gleason MD, Phone: [phone] 12 Note: Persistent reduction for 3 months [...] NO GROWTH: FINAL REPORT 36 K76.9 37 Note: Persistent reduction for 3 months or more in an eGFR <60 mL/min/1.73 m2 defines CKD. Patients with eGFR values >/=60 mL/min/1.73 m2 may also have CKD if evidence of persistent proteinuria is present. The original MDRD equation for estimated GFR is not valid for patients less than 18 years of age. Additional information may be found at www.kdoqi.org. 38 Reference Guidelines*: Desirable: ........... < 200 mg/dL Borderline High: ..... 200-239 mg/dL High: ................ >=240 mg/dL * The National Cholesterol Education Program (NCEP) 39 Reference Guidelines*: Normal: ............. < 150 mg/dL Borderline High: .... 150-199 mg/dL High: ............... 200-499 mg/dL Very High: .......... > 500 mg/dL * Source: National Cholesterol Education Program (NCEP) 40 Reference Guidelines*: Low HDL: ..... < 40 mg/dL Normal: ..... 40-60 mg/dL Desirable: ... > 60 mg/dL *The National Cholesterol Education Program(NCEP) 41 Reference Guidelines*: Optimal:........... <100 mg/dL Near Optimal....... 100-129 mg/dL Borderline High.... 130-159 mg/dL High............... 160-189 mg/dL Very High.......... >=190 mg/dL * Source: National Cholesterol Education Program (NCEP) 42 E78.5 43 Note: Persistent reduction for [...] Procedures Date CPT Code Description Status Comment 04/09/201752307 Aspiration/Injection joint Completed intermediate(wrist/ankle/elbow /olbursa 07/06/2016 11421 Remove Impact Cerumen Irrigati Completed 12/09/201513718 Asp./Injection major joint Completed 10/11/2015 88737 Radiology, Knee 3 Views Completed 10/11/2015 16508 Radiology, Knee 3 Views Completed 09/27/2015 46252 Remove Impacted Cerumen Completed 07/27/2015 61731 Remove Impacted Cerumen Completed 07/14/2015 98559 Colonoscopy With Polypectomy Completed 05/18/2015 55059 Remove Impacted Cerumen Completed 09/03/2014 Colonoscopy Completed 2024Document: 07/14/15 - Operative Report 06/11/2013 19147 Anesthesia, Upper Abdomen Completed Surgery Not Otherwise Spec 06/05/2013 49695 EKG Interpretation And Report Completed Only 01/11/201161840 Asp./Injection major joint Completed 07/03/2007 85032 Arthroscopy w/meniscectomy Completed including meniscal shaving 06/25/2007 87136 EKG-Tracing And Report Completed 04/27/1994 75316 Remove Impacted Cerumen Completed Encounters Type Date Location Provider CPT E/M Dx Office Visit 09/05/2017 11:40a [place] [address] E78.5 I10 R94.5 Z23 M70.21 Office Visit 08/09/2017 8:30a Orthopaedic Office Jose Beach M.D. 31979 M70.21 Office Visit 07/09/2017 1:20p [place] [address] Z23 I10 E78.5 E66.09 Z23 N20.0 Office Visit 07/02/2017 9:00a Primary Care Office Swapnil Meyer M.D. 37362 H61.21 H69.93 Office Visit 06/12/2017 10:00a Orthopaedic Office [place] M.D. 17819 M70.21 Office Visit 05/15/2017 9:15a Orthopaedic Office Jose Beach M.D. 75703 M70.21 Office Visit 04/19/2017 8:45a Orthopaedic Office Jose Beach M.D. 04442 M70.21 Office Visit 04/09/2017 1:15p Orthopaedic Office Jose Beach M.D. 84283 M70.21 Office Visit 04/02/2017 3:00p Primary Care Office Nidhi Hurley 55273 S40.811D PA-C V23.0xxD L03.113 I10 Office Visit 03/23/2017 1:20p [place] [address] S40.819A V29.00xA S37.039A Office Visit 01/03/2017 9:30a Primary Care Office Nidhi Hurley 55173 S61.412D PA-C K76.0 I10 E78.5 E83.42 Office Visit 12/21/2016 9:00a Primary Care Office Nidhi Hurley 74142 S61.412A PA-C I10 H61.23 K76.0 Z48.02 Office Visit 07/06/2016 9:30a Primary Care Office Nidhi Hurley PA-C 42791 I10 K57.30 K76.9 E78.5 M79.673 K60.1 Z23 H61.23 Office Visit 03/30/2016 2:00p Primary Care Office Nidhi Hurley PA-C 00447 I10 K57.30 K76.9 E78.5 M79.673 K60.1 Z23 Office Visit 01/07/2016 8:15a Orthopaedic Office Alma Gautam, 75711 M17.11 RPA M25.561 Office Visit 11/08/2015 8:15a Orthopaedic Office Alma Gautam, 20767 M25.561 [facility] M17.11 Office Visit 10/25/2015 9:30a HIMANSHU Hurley PA-C 77333 I10 K57.30 K76.9 E78.5 M79.673 Office Visit 10/11/2015 11:00a Orthopaedic Office Alma Gautam, 49305 M25.561 [facility] M17.11 Office Visit 09/27/2015 1:30p HIMANSHU Hurley PA-C 53739 I10 K57.30 K57.90 K60.2 K76.9 E78.5 H61.21 Office Visit 07/27/2015 1:30p HIMANSHU Paulino M.D. 46730 H61.20 I10 K76.9 E66.9 K57.30 K60.2 Office Visit 06/24/2015 1:00p HIMANSHU Hurley PA-C 25427 E78.5 I10 K76.0 R19.5 Office Visit 06/14/2015 11:30a HIMANSHU Hurley PA-C 16773 R19.5 Z23 K21.9 I10 Office Visit 05/18/2015 9:30a HIMANSHU Hurley PA-C 80499 I10 E78.5 M94.0 H61.23 K21.9 Office Visit 10/07/2008 1:45p HIMANSHU Paulino M.D. 94448 789.01 715.00 530.81 401.1 Office Visit 09/29/2008 1:45p HIMANSHU Paulino M.D. 17034 786.59 272.2 302.72 530.81 Office Visit 04/10/2008 2:30p HIMANSHU Paulino M.D. 33662 807.00 564.00 Office Visit 02/14/2008 2:30p HIMANSHU Paulino M.D. 61055 789.00 272.2 302.72 Office Visit 10/03/2007 9:30a [place] [address] 836.0 717.7 V67.09 Office Visit 06/21/2007 1:15p HIMANSHU Paulino M.D. 92336 719.46 272.2 Office Visit 06/03/2007 9:15a [place] [address] 836.0 Office Visit 04/30/2007 11:15a HIMANSHU Paulino M.D. 62614 719.46 Plan of Care 03/05/2018 - Chelsey Bentley MDI10 Essential (primary) hypertensionComments:-Well controlled-Chlorthalidone dailyReferral:Dieter Barrios JR, M.D., Cardiovsclr AopzstxV72.5 Hyperlipidemia, unspecifiedNew Labs:Comprehensive Metabolic PanelLDL Cholesterol ProfileComments:-Well controlled on Zetia, but increase in LFTs intially and now normalized -Niacin, Fish oil-Advised diet control, increase exercise and continue to lose weight-Trilgycerides also improved- Continue tomonitor every 6 monthsReferral:Dieter Barrios JR, M.D., Cardiovsclr DpnupzeB76.511 Pain in right shoulderComments:-possibly bursitis, good ROM- Aleve PRN, Ice area-Referral to OrthoReferral:Pankaj Torrez MD, Sports Med/ IebxznvqrfgvzH61.551 Pain in right hipComments:-likely mild arthritis vs bursitis-Aleve PRN -Ice area-patient would like referral to OrthoReferral: Pankaj Torrez MD, Sports Med/QzgskaobsrykcW04 Encounter for immunizationComments:-pneumovax given -counseled on qrhcjnqcY93 Rash and other nonspecific skin eruptionComments:possible shingles hydrocortisone three times a day as needed for itchingvalacyclovir 1gm 1 tab threetimes a day x 7 daysR07.89 Other chest painComments:-atypical chest pain-No pain with exertion intermittent-no pain today-occasional palpitations-EKG poor quality in office, cannot be read will send to Cardiology for EKGReferral:Dieter Barrios JR, M.D. , Cardiovsclr DiseaseAllNew Medication:Hydrocortisone 1 %Valacyclovir HCL 1 gmFollow up:f/u in 6 months fasting blood work prior pls get last urology note
[2018-03-28 16:03] VITALS: BP 121/74
--- NOTE | 2018-03-28 16:13 | UC ---
Throat Pain/Nasal Carlos Eduardo HPI - HPI Summary HPI Summary: 10 days of worsening frontal and maxillary head pain, feels congested, no fevers or sore throat-head - History of Current Complaint Chief Complaint: UCHeadache Stated Complaint: SINUS COMPLAINT Time Seen by Provider: 03/28/18 15:51 Hx Obtained From: Patient Onset/Duration: Gradual Onset, Lasting Days - 10 Pain Intensity: 7 Pain Scale Used: 0-10 Numeric Cough: None Associated Signs & Symptoms: Positive: Sinus Discomfort - Allergies/Home Medications Allergies/Adverse Reactions: Allergies Allergy/AdvReac Type Severity Reaction Status Date / Time Opyfpjb-Wmr-Fcu Reductase Allergy Muscle Ache Verified 03/28/18 15:55 Inhibitor Home Medications: Home Medications Ibuprofen TAB* [Advil TAB*] 600 mg PO Q6H PRN 03/28/18 [History Confirmed ] Pseudoephedrine HCl [Sudafed] 30 mg PO Q4H PRN 03/28/18 [History Confirmed 03/28] PMH/Surg Hx/FS Hx/Imm Hx Previously Healthy: No Endocrine History: Dyslipidemia Cardiovascular History: Hypertension - Surgical History Surgical History: Yes Surgery Procedure, Year, and Place: HERNIA. CHOLECYSTECTOMY - Family History Known Family History: Positive: None Negative: Cardiac Disease, Hypertension - Social History Occupation: Retired Lives: With Family Alcohol Use: Rare Substance Use Type: None Smoking Status (MU): Never Smoked Tobacco - Immunization History Most Recent Tetanus Shot: unkown Review of Systems Constitutional: Negative Skin: Negative Eyes: Negative ENT: Sinus Congestion, Sinus Pain/Tenderness Respiratory: Negative Cardiovascular: Negative Gastrointestinal: Negative Genitourinary: Negative Motor: Negative Neurovascular: Negative Musculoskeletal: Negative Neurological: Negative Psychological: Negative Is Patient Immunocompromised?: No All Other Systems Reviewed And Are Negative: Yes Physical Exam Triage Information Reviewed: Yes Appearance: Well-Appearing, No Pain Distress, Well-Nourished Vital Signs: Initial Vital Signs Temp 98.9 F 03/28/18 15:56 Pulse 61 03/28/18 15:56 Resp 14 03/28/18 15:56 BP 121/74 03/28/18 15:56 Pulse Ox 99 03/28/18 15:56 Vital Signs Reviewed: Yes Eye Exam: Normal Eyes: Positive: Conjunctiva Clear ENT Exam: Normal ENT: Positive: Normal ENT inspection, Hearing grossly normal, Pharynx normal, Nasal congestion, TMs normal, Sinus tenderness, Uvula midline. Negative: Trismus, Muffled voice, Hoarse voice, Dental tenderness Dental Exam: Normal Neck exam: Normal Neck: Positive: Supple, Nontender, No Lymphadenopathy Respiratory Exam: Normal Respiratory: Positive: Chest non-tender, Lungs clear, Normal breath sounds, No respiratory distress, No accessory muscle use Cardiovascular Exam: Normal Cardiovascular: Positive: RRR, No Murmur, Pulses Normal, Brisk Capillary Refill Musculoskeletal Exam: Normal Musculoskeletal: Positive: Strength Intact, ROM Intact, No Edema Neurological Exam: Normal Neurological: Positive: Alert, Muscle Tone Normal Psychological Exam: Normal Skin Exam: Normal Throat Pain/Nasal Course/Dx - Course Assessment/Plan: flonase, mucinex d, augmentin follow with pcp prn - Differential Dx/Diagnosis Provider Diagnoses: Acute rhinosinusitis Discharge - Sign-Out/Discharge Documenting (check all that apply): Patient Departure - Discharge Plan Condition: Stable Disposition: HOME Prescriptions: Amoxicillin/Clavulanate TAB* [Augmentin TAB 875*] 875 mg PO BID #20 tab Fluticasone NASAL SPRAY 50MCG* [Flonase NASAL SPRAY 50MCG*] 2 spray BOTH NARES DAILY #1 btl Patient Education Materials: Decongestant/Expectorant (By mouth), Sinusitis (ED ), How to Use Nasal [place] (ED) Referrals: Chelsey Bentley MD [Primary Care Provider] - 3 Days - Billing Disposition and Condition Condition: STABLE Disposition: Home
== END 2018-03-28 16:24 | disposition home or self-care (01) ==
LOC: UCCORT 14:53
DX: J01.90 Acute sinusitis, unspecified (principal); I10 Essential (primary) hypertension; Z88.8 Allergy status to other drugs, medicaments and biological substances
CPT/HCPCS: 99212; G0463